=== PATIENT | female | born 1985 | race Caucasian/White ===

== ENCOUNTER 2016-03-09 20:56 | Observation (INO) | payer BC ==
[~2016-03-09] VITALS: Ht 157.5 cm; Wt 83.1 kg
--- NOTE | 2016-03-09 | NUR ---
Orthostatic Sitting- BP-136/76 79-18 100% RA. Standing-BP 128/82 98-18 99% RA. Amgjte-AQ-240/82 p-98 R18 99% RA.
[2016-03-09] MEDS: LORazepam 2 MG/ML (ATIVAN) 1 ML VIAL IV ONE ×2 (21:38→22:52)
--- NOTE | 2016-03-09 21:50 | NUR ---
Patient reported to me, "I just passed alot of gas."
[2016-03-09] MEDS ORDERED: SODIUM CHLORIDE FLUSH 10 ML SYR IV PRN (21:55)
[2016-03-09] MEDS ORDERED: SODIUM CHLORIDE FLUSH 3 ML SYR IV ONE (21:55)
[2016-03-09 21:59] LABS: MEAN CORPUSCULAR HEMOGLOBIN 29.4 PG (26.0-34.0); MEAN CORPUSCULAR VOLUME 82 FL (80-100); MEAN PLATELET VOLUME 10.4 FL (6.0-9.5); PLATELET COUNT 242 10^3uL (150-450); WHITE BLOOD COUNT 8.09 10^3uL (4.0-11.0)
--- NOTE | 2016-03-09 21:59 | Diagnostic Imaging Report ---
INDICATION: 30-year-old female with chest pain and shortness of breath COMPARISONS: None FINDINGS: Single view of the chest shows the cardiac contour to be normal. The film is slightly underpenetrated. An element of mild central venous congestion is not excluded. No significant consolidations are seen. There is no effusion or pneumothorax. Soft tissues and bony thorax are normal. IMPRESSION: Questionable mild central venous congestion. This finding, however, is accentuated by the portable technique, underpenetrated film and low lung volumes. No significant consolidations seen. Dictated by: Dictated on workstation # [id number]
[2016-03-09 22:08] LABS: ALBUMIN 5.1 g/dL (3.4-5.0); ALKALINE PHOSPHATASE 98 U/L (38-126); ANION GAP 22.7 MEQ/L (3-15); BUN/CREATININE RATIO 17 (10-20); CALCULATED IONIZED CALCIUM 4.2 mg/dL (3.8-4.6); CREATINE KINASE 91 U/L (30-135)
[2016-03-09 22:14] LABS: MEAN CORPUSCULAR HGB CONC 35.9 g/dL (31.0-37.0)
--- NOTE | 2016-03-09 22:27 | NUR ---
Assisted patient to bathroom, c/o light headedness and being dizzy. Patient reported having a BM, uanaware of any pain. When asking if she had pain she stated, "I didn't really think about it or notice any but I was concentrating on pooping."
--- NOTE | 2016-03-09 22:28 | NUR ---
Assisted patient to bathroom, she was steady on feet but reported having dizziness or lightheadedness. When patient back in bed assessed sensation to feet, legs and arms to if having numbness or tingling more in one area than another. Sensation was equal to both legs and arms at this time. She also stated, "I didn't notice the pain to my chest while up to the toilet trying to have a BM."
[2016-03-09 22:37] LABS: AMPHETAMINE SCREEN, URINE Negative (Negative); CANNABINOID SCREEN, URINE Negative (Negative); METHAMPHETAMINE SCREEN URINE S NEGATIVE (NEGATIVE); OPIATE SCREEN URINE Negative (Negative); PROPOXYPHENE STAT NEGATIVE (NEGATIVE)
[2016-03-09 22:44] LABS: BAND NEUTROPHILS % 0 % (0-6); EOSINOPHILS % 2 % (0-4); MONOCYTES # 0.4 #; MONOCYTES % 5 % (3-11); RBC MORPH NORMAL (NORMAL); SEGMENTED NEUTROPHILS % 42 % (51-67); TOTAL CELLS COUNTED 100
--- NOTE | 2016-03-09 22:46 | NUR ---
DR COHEN CONTACTING DR QUINTEROS RE POSSIBLY ADMIT PT
[2016-03-09 22:51] LABS: BILIRUBIN,URINE Negative (Negative); COLOR,URINE Yellow; GLUCOSE, URINE (UA) Negative (Negative); LEUKOCYTE ESTERASE ,URINE Negative (Negative); UROBILINOGEN,URINE 0.2 mg/dL (0.2-1.0)
[2016-03-09 23:00] LABS: CLARITY,URINE Slightly Cloudy
[2016-03-09 23:01] LABS: URINE CENTRIFUGED VOLUME 12 mL
[2016-03-09 23:02] LABS: RBC,URINE 0-2 /HPF
--- NOTE | 2016-03-09 23:55 | NUR ---
Patient's spouse was on the phone to his sister and asked me if I would talk to her as she was and RN and had questions, Patient noddded "yes" when I looked at her to see if it was ok, he then handed the phone to me and I spoke with Margaret GLEZ. She stated, "I am the patients [id number] and I work in a hospital here in [place] and am really concerned with my [id number] still having chest pain and this numbness and tingling in her legs and arms, I am familiar with the NIH stroke scale and know that numbness and tingling makes it a (1) score on the NIH scale and feel that she should be transfered to [facility] to a higher level of care and not wait for any more testing." I explained to NEWTON Robles with family in room, " We have ran blood work for cardiac workup also checking the D-dimer for blood clots, EKG has been performed and from then we will see what the next step in care will be." I also explained that if Dr. Messina called to have this patient transfered the doctor would not except her before seeing the resuts of these test, and if we transfered with out a physicians acceptance it may or may not be covered by Insurance. I also informed her that EMS reported doing the [place]inatti stroke scale and was negative and she seems to be improving some. I told her that I understood her concerns, that I would pass on her concerns to Dr. Messina and if she has anymore questions I would do what I could to get them answered.
--- NOTE | 2016-03-09 23:55 | NUR ---
Admitted to room. Oriented to room and hospital procedures . Is alert and oriented. Hand informatica developer equal. PERRLA. Equal strength in extremities. No weakness. Patient denies any tingling or numbness at this time. Bilateral hand informatica developer strong and equal. IV NS hung and infusing at 150 cc an hour. No complications at IV site. Patient denies any chest pain or shortness of air. Visiting with , Dr Briggs in to do assessment of patient.
--- NOTE | 2016-03-09 23:57 | History and Physical (E) ---
History & Physical PCP: Perla Gale MD [facility] Shortnes of air, faintness, and chest pain. HPI Mrs. Shore is a 30 year old female presenting with a sudden onset of feeling faint, light headedness, shortness of breath and chest pain. She states her heart was racing. This started this evening around 8pm. She developed tingling in her hands with hand cramping and stiffness. This started to improve by the time the patient arrived to the ED. The patient returned from [place] this evening. They spent 8-10 hours in the car.. The patient presents with a sister who is a PA and has concerns for both a PE as well as cardiac source of the patient's symptoms. Patient's father was found to have a completely occluded LAD over the summer. He is age 5959 years old. Admission was requested for monitoring overnight. Upon arrival to the floor the patient was not in any distress. She does continue to have chest pain rating it 4-5/10. Patient also reports a history of esophageal spasms. She has never had an EGD. Also discussed possibility of anxiety/panic attacks. Patient understands that this is a possibility. Discussed current findings and care plans. Questions answered. Patient and family verbalized understanding. PMH Migraines PSH [place] tooth extraction Shoulder surgery ALLERGIES: Cheese Morphine Please see list at end of report. HOME MEDICATIONS: Pnv With Ca,No.71/Iron/Fa (Prenaplus Tablet) 1 EACH PO DAILY Docusate 100 MG PO HS PRN CONSTIPATION Ibuprofen 600 MG PO Q6H PRN PAIN Please see list at end of report. FH Parents-Father has cardiac disease. He is alive. Mother had some thyroid issues. Siblings--Sister with thyroid disease. Children--Healthy. SH Denies tobacco use. Alcohol--No alcohol. Living--Lives at home with spouse and children. Working-- CODE STATUS Full code ROS CONSTITUTION: Denies weight loss or gain. Reports fever and chills a couple of weeks ago, but this has passed. HEENT: No change in vision or hearing. No sores in mouth, sore throat. CV: Per HPI. PULM: No cough. Shortness of breath per HPI. GI: No upset stomach, nausea, vomiting, constipation, or diarrhea. Endorses some blood in stools occasionally due to anal fissures. : No dysuria. No blood in urine. Denies frequency or urgency. MS: No new muscle or joint aches and pains. NEURO: Hand numbness and tingling per HPI. INTEG: No rashes, lesions, or sores. ENDO: No heat or cold intolerance. HEME/LYMPH: No swollen glands. PSYCH: No change in mood or behavior. OBJECTIVE Vital Signs Date Time Temp Pulse Resp B/P Pulse Ox O2 Delivery O2 Flow Rate FiO2 03/09/16 20:56 96 16 118/68 100 Room Air GEN: Awake and alert. No distress. HEENT: Normocephalic, moist oral mucosa. NECK: Supple. Thyroid normal in size, smooth in contour. Lymphadenopathy of the right anterior cervical chain. CV: RRR, no murmurs noted. LUNGS: CTA B. NLR's. ABD: Normal bowel sounds. S/ND/NTTP. EXTR: No edema to the lower extremities. INTEG: No rash. LABS CBC BMP Last 24 Hrs 03/09/16 20:53 Laboratory Results Past 24 Hrs 03/09/16 20:53: Absolute Band Neutrophils 0.0, Alanine Aminotransferase (ALT/SGPT) 40, Albumin 5.1, Albumin/Globulin Ratio 1.758, Alkaline Phosphatase 98, Anion Gap 22.7, Aspartate Amino Transf (AST/SGOT) 27, BUN/Creatinine Ratio 17, Band Neutrophils % 0, Basophils # (Auto) , Basophils # (Manual) 0.1, Basophils % (Manual) 1, Basophils (%) (Auto) , Blood Morphology Comment Normal, Blood Urea Nitrogen 14, C-Reactive Protein < 0.50, Calcium Level 10.1, Calcium/Ionized Calcium Ratio 4.2 , Calculated Osmolality 275, Carbon Dioxide Level 17, Chloride Level 106, Creatine Kinase MB 0.7, Creatinine 0.81, D-Dimer 338, Differential Total Cells Counted 100, Eosinophils # 0.2, Eosinophils # (Auto) , Eosinophils % (Manual) 2 , Eosinophils (%) (Auto) , Estimat Glomerular Filtration Rate 99.1, Estimated GFR (Non- 81.9, Glucose Level 107, Hematocrit 39.00, Hemoglobin 14.0, Lymphocytes # 4.0, Lymphocytes # (Auto) , Lymphocytes % (Manual) 50, Lymphocytes (%) (Auto) , Mean Corpuscular Hemoglobin 29.4, Mean Corpuscular Hemoglobin Concent 35.9, Mean Corpuscular Volume 82, Mean Platelet Volume 10.4, Metamyelocytes % 0, Monocytes # 0.4, Monocytes # (Auto) , Monocytes % (Manual) 5 , Monocytes (%) (Auto) , YZ-Byd-X-Type Natriuretic Peptide 52, Neutrophils # 3.4 , Neutrophils # (Auto) , Neutrophils (%) (Auto) , Platelet Count 242, Potassium Level 3.0, Prothromb Time International Ratio 1.0, Prothrombin Time 10.9, Red Blood Count 4.76, Red Cell Distribution Width 13.0, Segmented Neutrophils % 42, Serum Alcohol < 10.0, Sodium Level 142, Thyroid Stimulating Hormone (TSH) 2.65, Total Bilirubin 0.8, Total Creatine Kinase 91, Total Protein 8.0, Troponin I < 0.012, White Blood Count 8.09 03/09/16 22:09: IY-Nej-U-Type Natriuretic Peptide 51 03/09/16 22:20: Ur Tricyclic Antidepressants Screen Negative, Urine Amphetamines Screen Negative , Urine Bacteria Rare, Urine Barbiturates Screen Negative, Urine Benzodiazepines Screen Negative, Urine Bilirubin Negative, Urine Cannabinoids Screen Negative, Urine Clarity Slightly cloudy, Urine Cocaine Screen Negative, Urine Collection Type Clean catch, Urine Color Yellow, Urine Glucose (UA) Negative, Urine Ketones Negative, Urine Leukocyte Esterase Negative, Urine Methadone Screen Negative, Urine Methamphetamines Screen Negative, Urine Mucus Rare, Urine Nitrite Negative, Urine Opiates Screen Negative, Urine Oxycodone Screen Negative, Urine Phencyclidine Screen Negative, Urine Propoxyphene Screen Negative, Urine Protein Negative, Urine RBC 0-2, Urine RBC (Auto) Trace-intact, Urine Specific [place] 1.010, Urine Squamous Epithelial Cells 50-100, Urine Urobilinogen 0.2, Urine WBC 0-2, Urine pH 6.0, Volume Urine Centrifuged 12 ml IMAGING 1.1.17 CXR IMPRESSION: Questionable mild central venous congestion. This finding, however, is accentuated by the portable technique, underpenetrated film and low lung volumes. No significant consolidations seen. ASSESSMENT/PLAN Dizziness/SOA/chest pain Cardiac vs GI/GERD vs anxiety TSH normal. EKG normal. 1st troponin normal. Will monitor patient on tele over night. Will obtain orthostatics Will trend troponins. Will provide GI cocktail. If all remains negative, will discharge to home tomorrow morning. Will get a lipid panel in the morning. Hypokalemia Replacing orally. Lactating Patient is nursing her 8month old child. Monitor medication safety closely. FEN Diet as tolerated. Will provide ivf's overnight. Electrolytes--potassium per above. Code status Full code. DVT proph Lovenox Dispo Observation status for tonight. Monitor troponins and tele. If this remains normal, given patient's family history, patient would benefit from a cardiology evaluation. Patient reports GI issues for some time and would benefit from EGD. Will treat lipids if needed. If work up is all normal, patient will need to address anxiety with her PCP. Allergies/Home Medications Allergies: Coded Allergies: morphine (Verified Allergy, Mild, Nausea/Vomiting, 12/15/13) Uncoded Allergies: Cheese (Allergy, Mild, 12/08/13) migranes Reported Home Medications Scheduled Pnv With Ca,No.71/Iron/Fa (Prenaplus Tablet) 1 EACH PO DAILY (Reported) Scheduled PRN ([Docusate Sodium]) 100 MG PO HS PRN PRN CONSTIPATION Ibuprofen (Ibuprofen) 600 MG PO Q6H PRN PRN PAIN Copies to: End of Report . OSMAN QUINTEROS MD Mar 09, 2016 23:56
[2016-03-10] MEDS ORDERED: ONDANSETRON 2 MG/ML (Z0FRAN) 2 ML VIAL IV PRN
[2016-03-10] MEDS ORDERED: ACETAMINOPHEN 325 MG TAB (TYLENOL) PO PRN ×2
[2016-03-10 00:23] VITALS: BP 136/76
[2016-03-10 00:25] VITALS: BP 136/76
[2016-03-10 01:19] VITALS: BP 118/68
[2016-03-10] MEDS ORDERED: POTASSIUM CHLORIDE ER 20 MEQ TABLET PO ONE (01:30)
[2016-03-10] MEDS ORDERED: GI COCKTAIL 55 ML UDC PO ONE (01:30)
[2016-03-10] MEDS ORDERED: BELLADONNA/PHENOBARBITAL ELIXIR (DONNATAL) 10 ML UDC ONE (02:08)
[2016-03-10] MEDS ORDERED: LIDOCAINE 2% VISCOUS 20ML UDC PO ONE (02:08)
[2016-03-10] MEDS ORDERED: MAG HYDROX/AL HYDROX/SIMETH 400-400-40/5 ML (MAG-AL PLUS XS) 30 ML UDC ONE (02:08)
--- NOTE | 2016-03-10 02:18 | NUR ---
Potassium 40 meq administered po per Drs orders along with GI Cocktail. Patient denies any discomforts. Got up to the bathroom and did well. Returned to bed. IV patent. Denies chest pain.
--- NOTE | 2016-03-10 06:30 | NUR ---
Patient rested at long intervals tonight. Denies numbness or tingling in extremities. Has some mid epigastric discomfort. No nausea or chest pain. in room. No concerns at this time.
[2016-03-10 07:29] LABS: ALBUMIN 3.9 g/dL (3.4-5.0); ANION GAP 14.4 MEQ/L (3-15); MAGNESIUM* 2.1 mg/dL (1.6-2.3); PHOSPHORUS 4.6 mg/dL (2.4-4.9)
--- NOTE | 2016-03-10 07:47 | Discharge Summary (E) ---
Discharge Summary (A) Admit Date/Time Mar 09, 2016 at 23:33 Discharge Date/Time Mar 10, 2016 Admitting Provider Cherry Quinteros MD Primary Care Provider Peral Felix MD Attending Provider Cherry Quinteros MD Consulting Provider Admission Diagnosis Dizziness/SOA/chest pain Hypokalemia Lactating History and Present Illness Mrs. Shore is a 30 year old female presenting with a sudden onset of feeling faint, light headedness, shortness of breath and chest pain. She states her heart was racing. This started this evening around 8pm. She developed tingling in her hands with hand cramping and stiffness. This started to improve by the time the patient arrived to the ED. The patient returned from [place] this evening. They spent 8-10 hours in the car.. The patient presents with a sister who is a PA and has concerns for both a PE as well as cardiac source of the patient's symptoms. Patient's father was found to have a completely occluded LAD over the summer. He is age 5959 years old. Admission was requested for monitoring overnight. Upon arrival to the floor the patient was not in any distress. She does continue to have chest pain rating it 4-5/10. Patient also reports a history of esophageal spasms. She has never had an EGD. Also discussed possibility of anxiety/panic attacks. Patient understands that this is a possibility. Discussed current findings and care plans. Questions answered. Patient and family verbalized understanding. Hospital Course and Treatment Dizziness/SOA/chest pain Cardiac vs GI/GERD vs anxiety TSH normal. EKG normal. 1st troponin normal. Will monitor patient on tele over night. Will obtain orthostatics Will trend troponins. Will provide GI cocktail. If all remains negative, will discharge to home tomorrow morning. Will get a lipid panel in the morning. Hypokalemia Replacing orally. Lactating Patient is nursing her 8month old child. Monitor medication safety closely. Encouraged patient to dump pumped milk until ThursdayMarch 10. FEN Diet as tolerated. Provided IVF's Electrolytes--potassium per above. Code status Full code. DVT proph Lovenox Dispo Observed over night. Troponins negative x 3. Telemetry showed NSR overnight. Lipid panel showed high VLDL and slightly elevated triglycerides. PCP to manage. Patient would likely benefit from a cardiology evaluation for further reassurance. Patient reports GI issues for some time and would benefit from EGD. If work up is normal, patient will need to address anxiety issues with her PCP. Discharge Physicial Exam Physical Exam General--Awake and alert. No distress. HEENT--Normocephalic. MMM in oral cavity. Lungs--Clear to auscultation bilaterally. Nonlabored respirations. Heart--RRR. No murmurs. Abdomen--Normal bowel sounds. Soft. Nondistended. Nontender. Extremities--No edema. Radiology/Laboratory Data Laboratory Results Past 24 Hrs 03/09/16 20:53: Absolute Band Neutrophils 0.0, Alanine Aminotransferase (ALT/SGPT) 40, Albumin 5.1, Albumin/Globulin Ratio 1.758, Alkaline Phosphatase 98, Anion Gap 22.7, Aspartate Amino Transf (AST/SGOT) 27, BUN/Creatinine Ratio 17, Band Neutrophils % 0, Basophils # (Auto) , Basophils # (Manual) 0.1, Basophils % (Manual) 1, Basophils (%) (Auto) , Blood Morphology Comment Normal, Blood Urea Nitrogen 14, C-Reactive Protein < 0.50, Calcium Level 10.1, Calcium/Ionized Calcium Ratio 4.2 , Calculated Osmolality 275, Carbon Dioxide Level 17, Chloride Level 106, Creatine Kinase MB 0.7, Creatinine 0.81, D-Dimer 338, Differential Total Cells Counted 100, Eosinophils # 0.2, Eosinophils # (Auto) , Eosinophils % (Manual) 2 , Eosinophils (%) (Auto) , Estimat Glomerular Filtration Rate 99.1, Estimated GFR (Non- 81.9, Glucose Level 107, Hematocrit 39.00, Hemoglobin 14.0, Lymphocytes # 4.0, Lymphocytes # (Auto) , Lymphocytes % (Manual) 50, Lymphocytes (%) (Auto) , Mean Corpuscular Hemoglobin 29.4, Mean Corpuscular Hemoglobin Concent 35.9, Mean Corpuscular Volume 82, Mean Platelet Volume 10.4, Metamyelocytes % 0, Monocytes # 0.4, Monocytes # (Auto) , Monocytes % (Manual) 5 , Monocytes (%) (Auto) , MH-Lpb-L-Type Natriuretic Peptide 52, Neutrophils # 3.4 , Neutrophils # (Auto) , Neutrophils (%) (Auto) , Platelet Count 242, Potassium Level 3.0, Prothromb Time International Ratio 1.0, Prothrombin Time 10.9, Red Blood Count 4.76, Red Cell Distribution Width 13.0, Segmented Neutrophils % 42, Serum Alcohol < 10.0, Sodium Level 142, Thyroid Stimulating Hormone (TSH) 2.65, Total Bilirubin 0.8, Total Creatine Kinase 91, Total Protein 8.0, Troponin I < 0.012, White Blood Count 8.09 03/09/16 22:09: PF-Tno-G-Type Natriuretic Peptide 51 03/09/16 22:20: Ur Tricyclic Antidepressants Screen Negative, Urine Amphetamines Screen Negative , Urine Bacteria Rare, Urine Barbiturates Screen Negative, Urine Benzodiazepines Screen Negative, Urine Bilirubin Negative, Urine Cannabinoids Screen Negative, Urine Clarity Slightly cloudy, Urine Cocaine Screen Negative, Urine Collection Type Clean catch, Urine Color Yellow, Urine Glucose (UA) Negative, Urine Ketones Negative, Urine Leukocyte Esterase Negative, Urine Methadone Screen Negative, Urine Methamphetamines Screen Negative, Urine Mucus Rare, Urine Nitrite Negative, Urine Opiates Screen Negative, Urine Oxycodone Screen Negative, Urine Phencyclidine Screen Negative, Urine Propoxyphene Screen Negative, Urine Protein Negative, Urine RBC 0-2, Urine RBC (Auto) Trace-intact, Urine Specific [place] 1.010, Urine Squamous Epithelial Cells 50-100, Urine Urobilinogen 0.2, Urine WBC 0-2, Urine pH 6.0, Volume Urine Centrifuged 12 ml 03/10/16 03:00: Troponin I < 0.012 03/10/16 05:15: Albumin [Pending], Anion Gap [Pending], Blood Urea Nitrogen [Pending], Calcium Level [Pending], Carbon Dioxide Level [Pending], Chloride Level [Pending], Creatinine [Pending], Estimat Glomerular Filtration Rate [Pending], Estimated GFR (Non- [Pending], Glucose Level [Pending], Magnesium Level [ Pending], Phosphorus Level [Pending], Potassium Level [Pending], Sodium Level [ Pending] 03/10/16 06:15: Cholesterol Level 141, Cholesterol/HDL Ratio 3.1, HDL Cholesterol 45, LDL Cholesterol, Calculated 59, Triglycerides Level 186, Troponin I < 0.012, VLDL Cholesterol, Calculated 37 Discharge Provider's Instructions You were admitted for chest pain. You have been monitored overnight. Your heart enzyme (troponin) has been negative. Your heart rhythm has been monitored overnight with telemetry and was normal overnight. Your triglycerides were found to be slightly elevated and your VLDL (very low density lipoprotein) was also slightly elevated. You will need to follow up with your PCP regarding treatment options. Please make a follow up appointment with PCP to discuss follow up with a associate professor of mathematics as well as follow up with GI regarding your esophageal symptoms. No new medications have been added to your home medication regimen. Please dump your breast milk through the afternoon of March 10. Discharge Medications Medication Profile: No Active Prescriptions or Reported Meds Follow up Follow up Referrals: Family Practice - Within 2 weeks @ [facility] with Perla Felix Md Discharge Diagnosis Dizziness/SOA/chest pain Hypokalemia Lactating Copies to: End of Report . CHERRY QUINTEROS MD Mar 10, 2016 07:47
--- NOTE | 2016-03-10 08:20 | Discharge Instructions (E) ---
Discharge Instructions Instructions You were admitted for chest pain. You have been monitored overnight. Your heart enzyme (troponin) has been negative. Your heart rhythm has been monitored overnight with telemetry and was normal overnight. Your triglycerides were found to be slightly elevated and your VLDL (very low density lipoprotein) was also slightly elevated. You will need to follow up with your PCP regarding treatment options. Please make a follow up appointment with PCP to discuss follow up with a distance education faculty liaison as well as follow up with GI regarding your esophageal symptoms. No new medications have been added to your home medication regimen. OSMAN QUINTEROS MD Mar 10, 2016 08:20
--- NOTE | 2016-03-10 08:59 | NUR ---
Discharge instructions reviewed with patient and spouse, both demonstrate understanding. SL removed with catheter tip intact. Skin warm, dry, intact. Resprs nonlabored, even on RA. Pt dismissed at this time via w/c accompanied by TAHMINA Cordova and spouse. Belongings and DC packet sent with patient.
[2016-03-10] MEDS ORDERED: ENOXAPARIN 40 MG/0.4 ML (LOVENOX) SYR SC SCH (09:00)
== END 2016-03-10 08:57 | disposition home or self-care (01) ==
LOC: EDUNIT# 20:56 → ED 20:58 → MED/SURG 23:33
PROVIDERS: ADMIT Family Medicine; ATTEND Family Medicine
DX: R07.9 Chest pain, unspecified (principal); R42 Dizziness and giddiness; R06.02 Shortness of breath
CPT/HCPCS: 36415; 71010; 80053; 80061; 80069; 80307; 80320; 81003; 81015; 82550; 82553; 83735; 83880; 84443; 84484; 85025; 85379; 85610; 86140; 93005; 93010; 96361; 96374; 99218; 99285

== ENCOUNTER → 2016-03-09 | Outpatient (CLI) | payer BC ==
[~2016-03-09] MED LIST: Docusate Sodium PO; HYDR-3702 PO; IBUP-15 PO; IBUP-1772 PO; PREN-46 PO; RANI150T11 PO
== END ==
LOC: EMS 20:45
PROVIDERS: ATTEND Family Medicine
DX: R07.89 Other chest pain (principal); R06.02 Shortness of breath